=== PATIENT | female | born 1975 | race Two or more races ===

== ENCOUNTER → 2020-04-17 | Outpatient (CLI) | payer OTHER ==
[2020-04-17 14:17] LABS: BASO # 0.1 x10^3/uL (0.0-0.2); BASO % 1 % (0-3); EOS # 0.2 x10^3/uL (0.0-0.7); EOS % 2 % (0-3); HEMATOCRIT 34.4 % (36.0-47.0); HEMOGLOBIN 11.2 g/dL (12.0-15.5); LYMPH % 22 % (24-48); MEAN CORPUSCULAR HEMOGLOBIN 24 pg (25-35); MEAN CORPUSCULAR HGB CONC 33 g/dL (31-37); MEAN CORPUSCULAR VOLUME 74 fL (79-100); MONO # 0.8 x10^3/uL (0.0-1.1); MONO % 9 % (0-9); NEUT # 6.2 x10^3/uL (1.8-7.7); NEUT % 66 % (31-73); PLATELET COUNT 492 x10^3/uL (140-400); RED BLOOD COUNT 4.63 x10^6/uL (3.50-5.40); RED CELL DISTRIBUTION WIDTH 15.8 % (11.5-14.5); WHITE BLOOD COUNT 9.4 x10^3/uL (4.0-11.0)
[2020-04-17 14:29] LABS: CALCIUM 8.4 mg/dL (8.5-10.1); CREATININE 0.6 mg/dL (0.6-1.0); GFR 109.6; POTASSIUM 3.5 mmol/L (3.5-5.1)
[2020-04-17 14:45] LABS: ALBUMIN 3.6 g/dL (3.4-5.0); ALBUMIN/GLOBULIN RATIO 0.9 (1.0-1.7); TOTAL BILIRUBIN 0.3 mg/dL (0.2-1.0); TOTAL PROTEIN 7.5 g/dL (6.4-8.2)
== END | disposition home or self-care (01) ==
LOC: ONCLAB 13:59
PROVIDERS: ATTEND Internal Medicine Hematology & Oncology
DX: D50.9 Iron deficiency anemia, unspecified (principal)
CPT/HCPCS: 36415; 80053; 82607; 82728; 82746; 83540; 83550; 85025

== ENCOUNTER → 2020-04-24 | Outpatient (CLI) | payer OTHER ==
[2020-04-24 11:33] LABS: BASO # 0.1 x10^3/uL (0.0-0.2); BASO % 1 % (0-3); EOS # 0.2 x10^3/uL (0.0-0.7); EOS % 2 % (0-3); HEMATOCRIT 36.8 % (36.0-47.0); HEMOGLOBIN 11.9 g/dL (12.0-15.5); LYMPH # 1.9 x10^3/uL (1.0-4.8); LYMPH % 28 % (24-48); MEAN CORPUSCULAR HEMOGLOBIN 24 pg (25-35); MEAN CORPUSCULAR HGB CONC 32 g/dL (31-37); MEAN CORPUSCULAR VOLUME 75 fL (79-100); MONO # 0.7 x10^3/uL (0.0-1.1); MONO % 11 % (0-9); NEUT % 58 % (31-73); PLATELET COUNT 199 x10^3/uL (140-400); RED BLOOD COUNT 4.91 x10^6/uL (3.50-5.40); RED CELL DISTRIBUTION WIDTH 15.6 % (11.5-14.5); WHITE BLOOD COUNT 6.9 x10^3/uL (4.0-11.0)
[2020-04-24 11:49] LABS: CALCIUM 8.6 mg/dL (8.5-10.1); CREATININE 0.5 mg/dL (0.6-1.0); GFR 135.3
[2020-04-24 12:11] LABS: ALBUMIN 3.7 g/dL (3.4-5.0); ALBUMIN/GLOBULIN RATIO 0.9 (1.0-1.7); TOTAL BILIRUBIN 0.2 mg/dL (0.2-1.0); TOTAL PROTEIN 7.8 g/dL (6.4-8.2)
== END ==
LOC: ONCLAB 11:15
PROVIDERS: ATTEND Physician Assistant
DX: D50.0 Iron deficiency anemia secondary to blood loss (chronic) (principal)
CPT/HCPCS: 36415; 80053; 82728; 83540; 83550; 85025

== ENCOUNTER → 2020-05-01 | Outpatient (CLI) | payer OTHER ==
[~2020-05-01] MED LIST: IBUP-1060 PO; OXYC1TAB15 PO
[2020-05-01 12:39] LABS: BASO # 0.1 x10^3/uL (0.0-0.2); BASO % 1 % (0-3); EOS # 0.2 x10^3/uL (0.0-0.7); EOS % 2 % (0-3); HEMATOCRIT 34.9 % (36.0-47.0); HEMOGLOBIN 11.4 g/dL (12.0-15.5); LYMPH # 2.2 x10^3/uL (1.0-4.8); LYMPH % 26 % (24-48); MEAN CORPUSCULAR HEMOGLOBIN 25 pg (25-35); MEAN CORPUSCULAR HGB CONC 33 g/dL (31-37); MEAN CORPUSCULAR VOLUME 76 fL (79-100); MONO # 0.7 x10^3/uL (0.0-1.1); MONO % 8 % (0-9); NEUT # 5.3 x10^3/uL (1.8-7.7); NEUT % 63 % (31-73); PLATELET COUNT 476 x10^3/uL (140-400); RED BLOOD COUNT 4.57 x10^6/uL (3.50-5.40); RED CELL DISTRIBUTION WIDTH 16.1 % (11.5-14.5); WHITE BLOOD COUNT 8.5 x10^3/uL (4.0-11.0)
[2020-05-01 13:31] LABS: % BANDS 2 % (0-9); % EOS 2 % (0-5); % LYMPHS 25 % (24-48); % MONOS 1 % (0-10); % MYELOS 2 % (0-0); % SEGS 68 % (35-66); PLT ESTIMATE ADEQUATE (ADEQUATE)
== END ==
LOC: SURGPAT 12:05
PROVIDERS: ATTEND Obstetrics & Gynecology
DX: Z01.812 Encounter for preprocedural laboratory examination (principal); N92.0 Excessive and frequent menstruation with regular cycle; Z20.828 Contact with and (suspected) exposure to other viral communicable diseases; Z88.0 Allergy status to penicillin
CPT/HCPCS: 85007; 85025; U0003

== ENCOUNTER 2020-05-07 09:03 | Day surgery (SDC) | payer OTHER ==
[~2020-05-07 09:03] MED LIST changes: -IBUP-1060 PO; +IV RINGERS,LACTATED 1000ML 1,000 ML IV SCH; +LIDOCAINE 1% PF 2 ML VIAL. ID PRN; +ONDANSETRON PF 4 MG/2 ML VIAL. IV PRN; -OXYC1TAB15 PO; +PROCHLORPERAZINE 10 MG/2 ML VIAL. IV PRN; +fentaNYL PF VIAL 100 MCG/2 ML VIAL IV PRN
[2020-05-07] MEDS ORDERED: MIDAZOLAM HCL/PF 2 MG/2 ML VIAL. ONE (09:35)
[2020-05-07] MEDS ORDERED: PROPOFOL 10 MG/ML (20ML) VIAL. IV ONE (09:36)
[2020-05-07] MEDS ORDERED: DEXAMETHASONE SOD PHOS 4 MG/ML VIAL ONE (09:36)
[2020-05-07] MEDS ORDERED: LIDOCAINE 2% PF 5 ML VIAL. ONE (09:36)
[2020-05-07] MEDS ORDERED: KETOROLAC 30 MG/ML VIAL. ONE (09:36)
[2020-05-07 10:48] LABS: HEMOGLOBIN 11.9 g/dL (12.0-15.5); RED BLOOD COUNT 4.55 x10^6/uL (3.50-5.40); RED CELL DISTRIBUTION WIDTH 18.9 % (11.5-14.5)
[2020-05-07] MEDS ORDERED: SEVOFLURANE 61 TO 120 MINUTES. IH ONE (11:13)
[2020-05-07] MEDS ORDERED: OXYC1TAB15 PO (11:51)
[2020-05-07] MEDS ORDERED: IBUP-1060 PO (11:51)
[2020-05-07] MEDS ORDERED: fentaNYL PF VIAL 100 MCG/2 ML VIAL ONE (11:56)
[2020-05-07] MEDS: fentaNYL PF VIAL 100 MCG/2 ML VIAL IV PRN ×2 (12:00→12:11)
[2020-05-07] MEDS ORDERED: MORPHINE SULFATE 2 MG/ML VIAL. ONE (12:15)
[2020-05-07] MEDS: MORPHINE SULFATE 2 MG/ML VIAL. IV PRN ×2 (12:17→12:25)
[2020-05-07] MEDS ORDERED: oxyCODONE/APAP 5/325 1 TAB TABLET PO ONE (12:30)
[2020-05-07] MEDS ORDERED: HYDROmorphone 2 MG/ML VIAL ONE (12:42)
[2020-05-07] MEDS: HYDROmorphone 2 MG/ML VIAL IV PRN ×2 (12:49→13:08)
[2020-05-07] MEDS ORDERED: IBUPROFEN 400 MG TABLET. PO ONE (13:45)
--- NOTE | 2020-05-07 14:19 | PDOC4 ---
OPERATIVE NOTE: PreOp Dx: Menorrhagia, anemia PostOp Dx: same Procedure: H/S, D&C, Novasure ablation Surgeon: Masoud Kitchen Anesthesia: LMA EBL: 50cc Fluids: 1L UOP: 300cc Complication: none Findings: benign appearing endometrium, anterior cervix with a glandular appearance Path: endometrial curetting LEIGHA KITCHEN MD May 07, 2020 14:19
--- NOTE | 2020-05-07 14:56 | OP ---
DATE OF SURGERY: 05/07/2020 PREOPERATIVE DIAGNOSES: 1. Menorrhagia. 2. Anemia. POSTOPERATIVE DIAGNOSES: 1. Menorrhagia. 2. Anemia. PROCEDURE: Hysteroscopy, D and C, and NovaSure ablation. SURGEON: Leigha Kitchen MD ANESTHESIA: LMA. ESTIMATED BLOOD LOSS: 50 mL. FLUIDS: 1000 mL. URINE OUTPUT: 300 mL. COMPLICATIONS: None. FINDINGS: Benign appearing endometrium. The anterior lip of the cervix is more glandular in appearance than squamous with glandular metaplasia where you would expect squamous areas. PATHOLOGY: Endometrial curetting. INDICATIONS: The patient is a 44-year-old 3, para 3-0-0-3, who presented to the office for evaluation of menorrhagia. The patient had been seeing a motor vehicle representative/oncologist for anemia. The patient had always had heavy periods. The patient had tried medical management without success and ultimately desired attempted ablation. The patient had undergone a Pap smear the year before on 09/29/2018, which returned negative negative. She also had an ultrasound on 02/09/2018 which revealed her uterus to measure 7.8 x 4.3 x 6.2 cm. DESCRIPTION OF PROCEDURE: The patient was taken to the operating room where LMA was placed without difficulty. The patient was prepped and draped in normal sterile fashion. A posterior weighted speculum was then placed into the patient's vagina. A right angle retractor was used to visualize the cervix. The anterior lip of the cervix was then grasped with a single tooth tenaculum. Due to its glandular, the tenaculum at times ripped through. At that point, the cervix was sounded and found to be 2.5 cm with a measurement of the uterus was found to be 8, so the uterine cavity was felt to be 5.5 cm. Once the sound was removed, the hysteroscope was then placed, visualization of the endometrium revealed benign findings. At that point, a curettage was performed in all 4 quadrants. The specimen was then sent to pathology. Once the curettage had been complete, the NovaSure was then placed in the endometrial cavity and when it was opened, it was found to be 4 cm. At that point, the measurements were placed into the NovaSure tower. The device was then activated and ablation occurred. Once this was complete, the NovaSure device was removed. The hysteroscope was then place, showed good ablative tissue throughout the endometrial cavity. At that point, the hysteroscope was removed. The single tooth tenaculum was removed with good hemostasis. The patient was then brought to the recovery room in stable condition. LEIGHA KITCHEN MD DR: Skylar JOB#: [id number] / [id number]
[2020-05-07 15:30] VITALS: BP 104/54
--- NOTE | 2020-05-09 15:09 | PATHOLOGY ---
[facility] Accession Number: [id number] . 01 Material submitted: . product of conception - D AND C . 01 Clinical history: . MENORRHAGIA . 02 Diagnosis: Endometrial curettings: - Early secretory endometrium. ([facility] 05/09/2020) [facility] 05/09/2020 1154 Local . 02 Comment: There is no evidence of hyperplasia or malignancy. ([facility] 05/09/2020) . 02 Electronically signed: . Tommy Isaac MD, Pathologist NPI- [id number] . 01 Gross description: . Received in formalin labeled "Iraheta, Solange, D and C" is a 2.8 x 2.8 x 0.6 cm aggregate of ordaz-brown soft tissue fragments and red-brown hemorrhagic material. The specimen is submitted entirely in cassettes A1-A2. [place] [place] SYC/C 05/08/2020 1201 Local . 02 Pathologist provided ICD-10: N92.0 . 02 CPT . 479337 Specimen Comment: A courtesy copy of this report has been sent to [phone], [phone] Specimen Comment: [id number] Specimen Comment: Report sent to / DR FELICIANO Performed at: 01 [facility] [address], [place], [place] [id number] MD Kodi Rodas MD Phone: [phone] Performed at: 02 [facility] [address] [place], [place] [id number] MD Tommy Isaac MD Phone: [phone]
== END 2020-05-07 15:45 | disposition home or self-care (01) ==
LOC: SURG 09:03
PROVIDERS: ATTEND Obstetrics & Gynecology
DX: N92.0 Excessive and frequent menstruation with regular cycle (principal); D64.89 Other specified anemias; Z88.0 Allergy status to penicillin; Z79.899 Other long term (current) drug therapy
CPT/HCPCS: 36415; 58563; 81025; 85027; 86850; 86900; 86901; A7015; J1100; J1170; J1885; J2250; J2270; J2405; J2704; J3010; J7030; J7120

== ENCOUNTER → 2020-05-16 | Outpatient (CLI) | payer OTHER ==
[2020-05-07 15:30] VITALS: BP 104/54
[~2020-05-16] MED LIST changes: +IBUP-1060 PO; -IV RINGERS,LACTATED 1000ML 1,000 ML IV SCH; -LIDOCAINE 1% PF 2 ML VIAL. ID PRN; -ONDANSETRON PF 4 MG/2 ML VIAL. IV PRN; +OXYC1TAB15 PO; -PROCHLORPERAZINE 10 MG/2 ML VIAL. IV PRN; -fentaNYL PF VIAL 100 MCG/2 ML VIAL IV PRN
--- NOTE | 2020-05-16 18:18 | KCIC ---
Bilateral digital screening mammograms with 3-D tomosynthesis: Reason for examination: Routine screening. No prior exams for comparison. New baseline. Bilateral mammograms in CC and oblique projections were obtained with 2-D imaging and 3-D tomosynthesis imaging on a Siemens Inspiration unit and reviewed on the workstation. Interpretation was made with the benefit of CAD. The skin and nipples show no abnormalities. No abnormal axillary lymph nodes are seen. The breast parenchyma is extremely dense. (Breast density: Category D.) There are no dominant masses, suspicious calcifications or architectural distortion. Impression: No evidence of malignancy. Recommend routine screening. Your patient's mammogram demonstrates that she has dense breast tissue (breast density category C or D), which could hide abnormalities, and if she has other risk factors for breast cancer that have been identified, she might benefit from supplemental screening tests that may be suggested by you as her ordering physician. Dense breast tissue, in and of itself, is a relatively common condition. Therefore, this information is not provided to cause undue concern, but rather to raise your awareness and to promote discussion with your patient regarding the presence of other risk factors, in addition to dense breast tissue. Your patient's mammography results will be sent to her. BI-RAD Category 1: Negative. "Our facility is accredited by the [employer] Mammography Program." This patient's information has been entered into a reminder system for the patient to be notified with the results of her examination and a target date for the next mammogram. Electronically signed by: Clary Brown MD (05/16/2020 6:15 PM) [id number]
== END ==
LOC: KCIC MAMMO 15:24
PROVIDERS: ATTEND Obstetrics & Gynecology
DX: Z12.31 Encounter for screening mammogram for malignant neoplasm of breast (principal)
CPT/HCPCS: 77063; 77067

== ENCOUNTER → 2020-06-11 | Outpatient (CLI) | payer OTHER ==
[2020-06-11 10:07] LABS: BASO # 0.1 x10^3/uL (0.0-0.2); BASO % 1 % (0-3); EOS # 0.1 x10^3/uL (0.0-0.7); EOS % 2 % (0-3); HEMATOCRIT 41.8 % (36.0-47.0); HEMOGLOBIN 14.1 g/dL (12.0-15.5); LYMPH # 2.2 x10^3/uL (1.0-4.8); LYMPH % 30 % (24-48); MEAN CORPUSCULAR HEMOGLOBIN 29 pg (25-35); MEAN CORPUSCULAR HGB CONC 34 g/dL (31-37); MEAN CORPUSCULAR VOLUME 85 fL (79-100); MONO # 0.7 x10^3/uL (0.0-1.1); MONO % 10 % (0-9); NEUT # 4.2 x10^3/uL (1.8-7.7); NEUT % 57 % (31-73); PLATELET COUNT 379 x10^3/uL (140-400); RED CELL DISTRIBUTION WIDTH 23.8 % (11.5-14.5); WHITE BLOOD COUNT 7.2 x10^3/uL (4.0-11.0)
[2020-06-11 10:15] LABS: CALCIUM 8.9 mg/dL (8.5-10.1); CREATININE 0.5 mg/dL (0.6-1.0); GFR 135.3; POTASSIUM 3.8 mmol/L (3.5-5.1)
[2020-06-11 10:41] LABS: ALBUMIN 3.8 g/dL (3.4-5.0); TOTAL BILIRUBIN 0.2 mg/dL (0.2-1.0); TOTAL PROTEIN 7.6 g/dL (6.4-8.2)
[2020-06-11 11:56] LABS: ANISOCYTOSIS PRESENT; PLT ESTIMATE ADEQUATE (ADEQUATE)
== END ==
LOC: ONCLAB 09:51
PROVIDERS: ATTEND Internal Medicine Hematology & Oncology
DX: D50.0 Iron deficiency anemia secondary to blood loss (chronic) (principal)
CPT/HCPCS: 36415; 80053; 82728; 83540; 83550; 85025